=== PATIENT | female | born 1950 | race Caucasian/White ===

== ENCOUNTER → 2016-05-22 | Outpatient (CLI) | payer OTHER, MEDICARE | END | disposition home or self-care (01) | LOC: C.PATHSPEC 13:50 | PROVIDERS: ATTEND Dermatology | DX: C44.622 Squamous cell carcinoma of skin of right upper limb, including shoulder (principal); L57.0 Actinic keratosis ==

== ENCOUNTER → 2016-06-27 | Outpatient (CLI) | payer OTHER, MEDICARE | END | disposition home or self-care (01) | LOC: C.PATHSPEC 13:54 | PROVIDERS: ATTEND Dermatology | DX: C44.622 Squamous cell carcinoma of skin of right upper limb, including shoulder (principal) ==

== ENCOUNTER → 2016-08-09 | Outpatient (CLI) | payer OTHER, MEDICARE | END | disposition home or self-care (01) | LOC: C.PATHSPEC 16:49 | PROVIDERS: ATTEND Dermatology | DX: L57.0 Actinic keratosis (principal) ==

== ENCOUNTER → 2016-08-21 | Outpatient (CLI) | payer OTHER, MEDICARE | END | disposition home or self-care (01) | LOC: C.PAPS 15:11 | PROVIDERS: ATTEND Family Medicine | DX: Z00.00 Encounter for general adult medical examination without abnormal findings (principal); Z12.4 Encounter for screening for malignant neoplasm of cervix ==

== ENCOUNTER → 2016-10-17 | Outpatient (CLI) | payer OTHER, MEDICARE ==
[2016-10-17 13:56] LABS: BASO % 0.4 %; BASO ABS # 0.04 K/uL (0-0.2); COMPLETE YES; EOS % 3.1 %; HEMATOCRIT 44.4 % (37-47); IG% 0.2 %; LYMPH % 19.8 %; LYMPH ABS # 1.83 K/uL (1.2-3.4); MEAN CELL VOLUME 90.6 fL (80-100); MEAN CORPUSCULAR HEMOGLOBIN 28.4 pg (25-34); MEAN CORPUSCULAR HGB CONC 31.3 g/dl (32-36); MEAN PLATELET VOLUME 10.3 fL (7.4-10.4); MONO % 5.6 %; NEUT % 70.9 %; PLATELET COUNT 269 K/uL (130-400); WHITE BLOOD COUNT 9.25 K/uL (4.8-10.8)
[2016-10-17 16:49] LABS: ALT/SGPT 24 U/L (12-78); BLOOD UREA NITROGEN 12 mg/dl (7-18); BUN/CREATININE RATIO 10.8 (10-20); CALCIUM 9.5 mg/dl (8.5-10.1); CARBON DIOXIDE 22 mmol/L (21-32); CHLORIDE 112 mmol/L (98-107); CHOLESTEROL 182 mg/dl (0-200); GLUCOSE 85 mg/dl (70-99); POTASSIUM 4.2 mmol/L (3.5-5.1); SODIUM 143 mmol/L (136-145)
[2016-10-17 16:57] LABS: ALB/GLOB RATIO 1.1 (0.9-2); ALKALINE PHOSPHATASE 86 U/L (45-117); AST/SGOT 20 U/L (15-37); CHOLESTEROL/HDL RATIO 2.8; HDL CHOLESTEROL 64 mg/dl; LDL CHOLESTEROL CALCULATED 93 mg/dl; TRIGLYCERIDES 127 mg/dl (0-150); VERY LOW DENSITY LIPOPROT CALC 25 mg/dl
== END | disposition home or self-care (01) ==
LOC: C.LABMFLN 07:06
PROVIDERS: ATTEND Family Medicine
DX: D12.6 Benign neoplasm of colon, unspecified (principal); E78.5 Hyperlipidemia, unspecified; E03.9 Hypothyroidism, unspecified

== ENCOUNTER → 2016-11-26 | Outpatient (CLI) | payer OTHER, MEDICARE | END | disposition home or self-care (01) | LOC: C.PATHSPEC 16:16 | PROVIDERS: ATTEND Dermatology | DX: C44.612 Basal cell carcinoma of skin of right upper limb, including shoulder (principal) ==

== ENCOUNTER → 2017-04-08 | Outpatient (CLI) | payer OTHER, MEDICARE | END | disposition home or self-care (01) | LOC: C.LABMFLN 10:57 | PROVIDERS: ATTEND Family Medicine | DX: R06.02 Shortness of breath (principal) ==

== ENCOUNTER → 2017-08-12 | Outpatient (CLI) | payer OTHER, MEDICARE | END | disposition home or self-care (01) | LOC: C.LABMFLN 13:12 | PROVIDERS: ATTEND Family Medicine | DX: R31.9 Hematuria, unspecified (principal) ==

== ENCOUNTER → 2017-08-14 | Outpatient (CLI) | payer OTHER, MEDICARE ==
[2017-08-14 13:58] LABS: ALBUMIN 3.6 gm/dl (3.4-5.0); BLOOD UREA NITROGEN 16 mg/dl (7-18); CALCIUM 9.2 mg/dl (8.5-10.1); CARBON DIOXIDE 23 mmol/L (21-32); CREATININE 1.16 mg/dl (0.60-1.20); GLUCOSE 99 mg/dl (70-99); POTASSIUM 3.7 mmol/L (3.5-5.1); SODIUM 139 mmol/L (136-145)
[2017-08-14 14:00] LABS: PHOSPHORUS 2.6 mg/dl (2.5-4.9)
== END | disposition home or self-care (01) ==
LOC: C.LABMFLN 09:02
PROVIDERS: ATTEND Family Medicine
DX: R31.9 Hematuria, unspecified (principal)

== ENCOUNTER → 2017-09-02 | Outpatient (CLI) | payer OTHER, MEDICARE ==
--- NOTE | 2017-09-04 19:24 | CODING QUERY NO DIAGNOSIS ---
TREATMENT RENDERED WITHOUT A DIAGNOSIS Dr. Saha DOS: 09/02/17 To promote full compliance with coding requirements relating to patient care, physician participation is requested in all cases of wheel lacer and truer uncertainty. Please assist us with providing a diagnosis/symptom for the test(s) below: A diagnosis/symptom was not documented on your Order. A valid diagnosis/symptom is required to bill all insurances. Please remember that we are unable to code a diagnosis of rule out, probable, possible, questionable, or suspected. Tests that require a diagnosis: Endometrial Biopsy: Diagnosis: Provider Signature: Date: Thank you Racquel Magana - Light Bulb Assembler Health Information Management Once completed, please kindly fax back to [phone] For questions please call [phone]
--- NOTE | 2017-09-17 05:47 | CODING QUERY NO DIAGNOSIS ---
TREATMENT RENDERED WITHOUT A DIAGNOSIS Dr. Saha DOS: 09-02-17 To promote full compliance with coding requirements relating to patient care, physician participation is requested in all cases of gusset ripper uncertainty. Please assist us with providing a diagnosis/symptom for the test(s) below: A diagnosis/symptom was not documented on your Order. A valid diagnosis/symptom is required to bill all insurances. Please remember that we are unable to code a diagnosis of rule out, probable, possible, questionable, or suspected. Tests that require a diagnosis: * Endometrial Biopsy DIAGNOSIS: Provider Signature: Date: Thank you Racquel Magana EPIS Information Management Once completed, please kindly fax back to [phone] For questions please call [phone]
== END | disposition home or self-care (01) ==
LOC: C.PATHSPEC 17:07
PROVIDERS: ATTEND Obstetrics & Gynecology
DX: N95.0 Postmenopausal bleeding (principal)

== ENCOUNTER → 2017-12-05 | Outpatient (CLI) | payer OTHER, MEDICARE ==
[~2017-12-05] MED LIST: LEVO25TA5 PO; LITH150C PO; MULT-506 PO; PRAV80TA2 PO
[2017-12-05 15:08] LABS: BASO % 0.2 %; BASO ABS # 0.02 K/uL (0-0.2); EOS % 2.1 %; EOS ABS # 0.21 K/uL (0-0.5); HEMATOCRIT 41.7 % (37-47); IG# 0.02 K/uL (0.00-0.02); LYMPH % 25.2 %; LYMPH ABS # 2.57 K/uL (1.2-3.4); MEAN CELL VOLUME 90.5 fL (80-100); MEAN CORPUSCULAR HEMOGLOBIN 30.4 pg (25-34); MEAN CORPUSCULAR HGB CONC 33.6 g/dl (32-36); MEAN PLATELET VOLUME 10.7 fL (7.4-10.4); MONO % 6.5 %; MONO ABS # 0.66 K/uL (0.11-0.59); NEUT % 65.8 %; NEUT ABS # 6.73 K/uL (1.4-6.5); PLATELET COUNT 256 K/uL (130-400); RED CELL DISTRIBUTION WIDTH CV 13.3 % (11.5-14.5); RED CELL DISTRIBUTION WIDTH SD 43.8 fL (36.4-46.3); WHITE BLOOD COUNT 10.21 K/uL (4.8-10.8)
== END | disposition home or self-care (01) ==
LOC: C.LAB1850 14:27
PROVIDERS: ATTEND Obstetrics & Gynecology
DX: Z01.818 Encounter for other preprocedural examination (principal)

== ENCOUNTER → 2017-12-11 | Day surgery (SDC) | payer OTHER, MEDICARE ==
[2017-11-12 11:43] VITALS: Ht 158.8 cm; Wt 80.9 kg
[~2017-12-11] VITALS: Ht 158.8 cm; Wt 80.9 kg
[~2017-12-11] MED LIST changes: +ATROPINE SULFATE 0.1 MG/ML 5ML SYR IV PRN; +DEXAMETHASONE SOD INJ 4 MG/ML VIAL ONE; +EpHEDrine SULFATE INJ 50 MG/ML AMP IV PRN; +FENTANYL CITRATE INJ 50 MCG/1 ML 2 ML VIAL IV PRN; +FENTANYL CITRATE INJ 50 MCG/1 ML 2 ML VIAL ONE; +FLUMAZENIL 0.1 MG/1 ML 10 ML VIAL IV PRN; +HYDROmorphone INJ 2 MG/ML SYR/VIAL IV PRN; +HydrALAZINE HCL 20 MG/ML VIAL IV. STA; +HydrALAZINE HCL 20 MG/ML VIAL ONE; +KETOROLAC TROMETHAMINE 30 MG/ML VIAL IV. PRN; +LABETALOL HCL IV 5 MG/ML 20ML IV PRN; +LIDOCAINE HCL 2% 2 ML VIAL (20MG/ML) ONE; +MEPERIDINE HCL 25 MG/ML CARP IV PRN; +MIDAZOLAM HCL 1 MG/ML 2ML VIAL ONE; +NALOXONE HCL 0.4 MG/1 ML VIAL/CARP IV PRN; +ONDANSETRON INJ 2 MG/ML 2 ML VIAL IV PRN; +ONDANSETRON INJ 2 MG/ML 2 ML VIAL ONE; +OXYCODONE/ACETAMINOPHEN 5-325 TAB PO PRN; +PHENYLEPHRINE 100MCG/ML 5ML SYR IV PRN; +PROMETHAZINE HCL INJ 25 MG in SODIUM CHLORIDE 0.9% 50ML 50 ML IV PRN; +PROPOFOL IV EMULSION 10 MG/ML 20 ML VIAL ONE; +SODIUM CHLORIDE 0.9% 1000ML 1,000 ML IV SCH
[2017-12-11] MEDS: LACTATED RINGER'S 1000ML 1,000 ML IV SCH ×2 (12:22→15:22)
--- NOTE | 2017-12-11 13:37 | History & Physical Bridge - SC ---
H&P Re-Evaluation Bridge Note: I have examined the patient, reviewed the History & Physical and in the interval since the performance of the History & Physical I have noted the following changes of clinical significance: Note from PCP yesterday provides cardiac clearance for surgery.
--- NOTE | 2017-12-11 14:29 | [facility] Post Operative Brief Note ---
Immediate Operative Summary Operative Date Dec 11, 2017. Pre-Operative Diagnosis Post Menopausal Bleeding, endometrial polyp, Enlarged Ovary Post-Operative Diagnosis same Procedure(s) Performed Dilatation and Curettage,Hysteroscopy, Myosure Resection of Endometrial Polyp Surgeon Dr. Melissa Saha Glazier Artist Surgeon(s) 0 Estimated Blood Loss 5cc Findings Consistent with Post-Op Diagnosis Large endometrial polyp Specimens A. Endometrial Polyp and Curettings Drains bladder emptied, clear yellow Anesthesia Type General Complication(s) none Disposition Accompanied Pt To Recover: no Disposition: Recovery Room / PACU
--- NOTE | 2017-12-11 14:32 | Discharge Instructions-SurgCtr ---
Discharge Instructions Date of Service Dec 11, 2017. Visit Reason for Visit: Post Menopausal Bleeding, Enlarged Ovary Discharge Discharge Diagnosis / Problem: Endometrial polyp Discharge Goals Goal(s): Diagnostic testing, Therapeutic intervention Activity Recommendations Activity Limitations: per Instructions/Follow-up section Anesthesia . Post Anesthesia Instructions: If you have had General Anesthesia or IV Sedation: * Do not drive today. * Resume driving when surgeon permits. * Do not make important decisions or sign legal documents today. * Call surgeon for: 1. Temperature elevations greater than 101 degrees F. 2. Uncontrollable pain. 3. Excessive bleeding. 4. Persistent nausea and vomiting. 5. Medication intolerance (nausea, vomiting or rash). * For nausea and vomiting use only clear liquids such as: tea, soda, bouillon until nausea subsides, then gradually increase diet as tolerated. * If you have any concerns or questions, call your surgeon's office. If physician is unavailable and it is an emergency, call 911 or go to the nearest emergency room. . Instructions / Follow-Up Instructions / Follow-Up ACTIVITY RECOMMENDATIONS: * Avoid tampons, douching, hot tubs, pools, and intercourse until bleeding has stopped. * May shower as usual. * No strenuous activity for 24-48 hours. After 24-48 hours, you may do anything you feel like doing (driving and sports are okay). SPECIAL CARE INSTRUCTIONS: Special Diet: * Mild nausea may occur in the immediate post-operative period. * Take clear liquids such as tea, cola or bouillon until all nausea has subsided; you may then resume your normal diet. Special Care: * Light bleeding and vaginal spotting can last from a few days to 3-4 weeks. Call your doctor if bleeding becomes heavier than the heaviest part of your period. * Check your temperature twice a day for one week. If it goes above 100.4 degrees Fahrenheit (38.0 Celsius), notify your doctor. * Call your doctor's office for an appointment for 6 weeks after your surgery. FOLLOW-UP VISIT: Call your doctor's office for an appointment for 6 weeks after your surgery. Diet Recommendations Home Diet: resume previous diet Procedures Procedures Performed: Dilatation and Curettage,Hysteroscopy, Myosure Resection of Endometrial Polyp Pending Studies Studies pending at discharge: yes List of pending studies: pathology Medical Emergencies . Who to Call and When: Medical Emergencies: If at any time you feel your situation is an emergency, please call 911 immediately. . Non-Emergent Contact Non-Emergency issues call your: Primary Care Provider, Home And School Visitor . . "Provider Documentation" section prepared by Radha Saha. .
--- NOTE | 2017-12-11 14:36 | [facility] Operative Report ---
Operative Report Operative Date Dec 11, 2017. Pre-Operative Diagnosis Post Menopausal Bleeding, endometrial polyp, Enlarged Ovary Post-Operative Diagnosis same Procedure(s) Performed Dilatation and Curettage,Hysteroscopy, Myosure Resection of Endometrial Polyp Surgeon Dr. Melissa Saha [employer] Director Surgeon(s) 0 Estimated Blood Loss 5cc Findings Large endometrial polyp Specimens A. Endometrial Polyp and Curettings Drains bladder emptied, clear yellow Anesthesia Type General Complication(s) none Disposition no Recovery Room / PACU Indications 67-year-old with postmenopausal bleeding, ultrasound showed thickened endometrium and right ovarian enlargement. There was the appearance of a polyp- like structure in the endometrium. Description of Procedure Patient was seen in the preoperative holding area, where risks benefits and alternatives to surgery reviewed. She elected to proceed with the case. She previously signed informed consent under no duress in the office. All questions were answered. She is taken to the operating room, where general anesthesia was administered. She is prepared and draped in the usual sterile fashion with feet and yellowfin stirrups in the dorsal lithotomy position. Timeout was confirmed. Bladder was drained for clear yellow urine. A weighted speculum was placed in the vagina, cervix was visualized, anterior lip was grasped with single-tooth tenaculum. The cervix was gently dilated to admit a Myosure hysteroscope, this was then inserted and a large, vascular endometrial polyp was noted filling the endometrial canal. The Myosure device was then inserted through the hysteroscope, and the polyp was resected starting at the tip and working towards the uterine fundus, where the polyp stalk was located. After removal of the large polyp, a second, smaller polyp was noted in the right uterine fundus, this was also resected. All specimens were sent to pathology labeled endometrial curettings and polyp. All instruments removed from the vagina, excellent hemostasis was observed. Total fluid deficit 700 mL. Sponge and instrument counts were correct 2 at the conclusion of the case. Patient was take taken to the recovery area in stable and good condition. I attest to the content of the Intraoperative Record and any orders documented therein. Any exceptions are noted below.
--- NOTE | 2017-12-11 15:39 | Anesthesia Progress Nt - [facility] ---
Anesthesia Post Op Note Date & Time Dec 11, 2017 at 15:31 Vital Signs Pain Intensity: 2 Vital Signs Past 12 Hours Date Time Temp Pulse Resp B/P (MAP) Pulse Ox O2 Delivery O2 Flow Rate FiO2 12/11/17 15:30 36.4 62 16 155/61 (132) 98 Room Air 12/11/17 14:55 193/85 12/11/17 14:53 54 14 96 12/11/17 14:53 53 14 12/11/17 14:52 190/79 12/11/17 14:51 55 19 12/11/17 14:51 19 12/11/17 14:48 175/132 12/11/17 14:46 50 14 12/11/17 14:46 50 14 100 12/11/17 14:41 57 16 12/11/17 14:41 57 16 193/81 100 12/11/17 14:38 232/95 12/11/17 14:37 197/98 12/11/17 14:36 36.2 53 12 147/94 98 Mask 8 12/11/17 14:36 54 10 12/11/17 14:36 54 10 98 12/11/17 12:05 36.5 51 16 164/71 (102) 96 Room Air Notes Mental Status: alert / awake / arousable, participated in evaluation Pt Amnestic to Procedure: Yes Nausea / Vomiting: adequately controlled, improving with treatment Pain: adequately controlled Airway Patency, RR, SpO2: stable & adequate BP & HR: stable & adequate Hydration State: stable & adequate Anesthetic Complications: no major complications apparent The patient was noted to have rotten teeth in her R upper mouth prior to surgery. The teeth appeared black. Upon induction, they were noted by the PRODUCTION SKI REPAIRER prior to placing the LMA as well. The patient tolerated the procedure well. In the PACU, the patient noted that one of the black teeth had come out. It was noted to have one root with the other root in the patient's mouth. The tooth appeared black and not viable. It was placed in a cup to be given to the patient. A photo of the tooth along with the patient's mouth with the remaining black tooth were taken and an incident report was filled out. The patient did not have any pain in her mouth. The patient's SBP in the PACU was in the 190s with HR in the 50s so she was treated with hydralazine. Her SBP came down to the 160s which was her baseline. She had some PONV that was treated and resolved with Zofran. I spoke to the patient and her about the tooth. She stated that her dentist told her that they would need to be pulled. I recommended to the patient and her that the patient should follow up with her dentist to which they agreed.
[2017-12-11 15:52] VITALS: BP 164/78; PULSE 57; O2SAT 97
== END | disposition home or self-care (01) ==
LOC: X.SURG 11:46
PROVIDERS: ATTEND Obstetrics & Gynecology
DX: N95.0 Postmenopausal bleeding (principal); N84.0 Polyp of corpus uteri; N83.8 Other noninflammatory disorders of ovary, fallopian tube and broad ligament; Z85.828 Personal history of other malignant neoplasm of skin; E78.5 Hyperlipidemia, unspecified; E03.9 Hypothyroidism, unspecified; F17.200 Nicotine dependence, unspecified, uncomplicated; Z79.899 Other long term (current) drug therapy; E66.9 Obesity, unspecified; Z68.32 Body mass index [BMI] 32.0-32.9, adult

== ENCOUNTER → 2017-12-16 | Outpatient (CLI) | payer OTHER, MEDICARE ==
[~2017-12-16] MED LIST changes: -ATROPINE SULFATE 0.1 MG/ML 5ML SYR IV PRN; -DEXAMETHASONE SOD INJ 4 MG/ML VIAL ONE; -EpHEDrine SULFATE INJ 50 MG/ML AMP IV PRN; -FENTANYL CITRATE INJ 50 MCG/1 ML 2 ML VIAL IV PRN; -FENTANYL CITRATE INJ 50 MCG/1 ML 2 ML VIAL ONE; -FLUMAZENIL 0.1 MG/1 ML 10 ML VIAL IV PRN; +GADAVIST IV PRN; -HYDROmorphone INJ 2 MG/ML SYR/VIAL IV PRN; -HydrALAZINE HCL 20 MG/ML VIAL IV. STA; -HydrALAZINE HCL 20 MG/ML VIAL ONE; -KETOROLAC TROMETHAMINE 30 MG/ML VIAL IV. PRN; -LABETALOL HCL IV 5 MG/ML 20ML IV PRN; -LIDOCAINE HCL 2% 2 ML VIAL (20MG/ML) ONE; -MEPERIDINE HCL 25 MG/ML CARP IV PRN; -MIDAZOLAM HCL 1 MG/ML 2ML VIAL ONE; -NALOXONE HCL 0.4 MG/1 ML VIAL/CARP IV PRN; -ONDANSETRON INJ 2 MG/ML 2 ML VIAL IV PRN; -ONDANSETRON INJ 2 MG/ML 2 ML VIAL ONE; -OXYCODONE/ACETAMINOPHEN 5-325 TAB PO PRN; -PHENYLEPHRINE 100MCG/ML 5ML SYR IV PRN; -PROMETHAZINE HCL INJ 25 MG in SODIUM CHLORIDE 0.9% 50ML 50 ML IV PRN; -PROPOFOL IV EMULSION 10 MG/ML 20 ML VIAL ONE; -SODIUM CHLORIDE 0.9% 1000ML 1,000 ML IV SCH
[2017-12-16 08:19] LABS: BLOOD UREA NITROGEN 15 mg/dl (7-18); CREATININE 1.09 mg/dl (0.60-1.20)
--- NOTE | 2017-12-16 09:48 | DIAGNOSTIC IMAGING REPORT ---
PELVIC COMBO CLINICAL HISTORY: 67 years-old Female presenting with ENLARGED RIGHT OVARY, right-sided lower abdominal pain intermittent, increased bleeding. TECHNIQUE: Multisequence, multiplanar MR imaging of the pelvis was performed before and after the administration of intravenous contrast. IV contrast: 8.2 mL of Gadavist. COMPARISON: Outside ultrasound from 10/28/2017. FINDINGS: Localizer images: Unremarkable. Anteverted uterus. Endometrium is not thickened. The endometrium measures 4 mm at the fundus. Right ovary is enlarged measuring 4.6 x 3.0 x 3.6 cm. The ovary is homogeneously solid without evidence of a focal lesion. The ovary enhances on postcontrast imaging. Left ovary normal and atrophic, compatible with the patient's postmenopausal status. Normal appearance of the vagina allowing for apposition of the vaginal adames. Bladder decompressed and incompletely evaluated. No bowel obstruction. No free fluid in the pelvis. No lymphadenopathy. Patent vasculature. Small fat-containing umbilical hernia. Normal bone marrow signal intensity. IMPRESSION: 1. Pathologically enlarged right ovary given the patient's postmenopausal status. Although no focal underlying lesion is appreciated, this primarily raises concern for ovarian mass. Ovarian torsion would be unexpected given the patient's age and the homogeneous enhancement of the ovary. Gynecologic consultation recommended for possible oophorectomy. 2. No evidence of endometrial thickening. The report will be called/faxed according to standard departmental protocol. Electronically signed by: Armani Babb M.D. 12/16/2017 9:46 AM Dictated Date/Time: 12/16/2017 9:32 AM
== END | disposition home or self-care (01) ==
LOC: C.MRI 07:23
PROVIDERS: ATTEND Obstetrics & Gynecology
DX: N83.8 Other noninflammatory disorders of ovary, fallopian tube and broad ligament (principal); N95.8 Other specified menopausal and perimenopausal disorders

== ENCOUNTER → 2017-12-25 | Outpatient (CLI) | payer OTHER, MEDICARE ==
[~2017-12-25] MED LIST changes: -GADAVIST IV PRN
== END | disposition home or self-care (01) ==
LOC: C.LABMFLN 08:45
PROVIDERS: ATTEND Obstetrics & Gynecology
DX: N83.8 Other noninflammatory disorders of ovary, fallopian tube and broad ligament (principal)